=== PATIENT | female | born 1995 | race Caucasian/White ===

== ENCOUNTER 2016-11-18 17:01 | Emergency (ER) | payer OTHER ==
[2016-11-18 18:36] LABS: Hematocrit 38 % (35-47); Hemoglobin 12.7 g/dl (12.0-16.0); Mean Corpuscular HGB Conc 33 g/dl (31-36); Mean Corpuscular Hemoglobin 29 pg (27-31); Mean Corpuscular Volume 87 fL (80-97); Mean Platelet Volume 9 um3 (7.4-10.4); Red Cell Distribution Width 13 % (10.5-15); White Blood Count 10.5 10^3/ul (3.5-10.8)
--- NOTE | 2016-11-18 18:39 | ED ---
Syncope/Near Syncope - HPI Summary HPI Summary: Patient was walking down stairs at school when she began to feel like she was going to pass out, and then she did. The episode was witnessed by her co- workers. She fell forward, landing on her right side hip and then shoulder. Her head did not land hard against any surface. She came too and "feels completely normal now". She had a similar episode years ago when she had a cold and was coughing a lot. [place], and had to spend three days in airports trying to get back. She feels like she has been eating and drinking well. She has not been ill. She denies CP, SOB, fevers, HOPKINS, neck pain, abdominal or back pain. She is not sexually active and her period has been regular. - History Of Current Complaint Chief Complaint: EDSyncope Time Seen by Provider: 11/18/16 17:42 Hx Obtained From: Patient Onset/Duration: Gradual Onset Timing: Minutes Context: Witnessed Activity At Onset: Other - walking down stairs Associated Head Trauma: No Aggravating Factor(s): Nothing Alleviating Factor(s): Spontaneous Resolution Associated Signs And Symptoms: Negative - Risk Factors Cardiac Risk Factors: Negative Dysrhythmia Risk Factors: Negative Risk Factor(s): Negative - Allergies/Home Medications Allergies/Adverse Reactions: Allergies Allergy/AdvReac Type Severity Reaction Status Date / Time No Known Allergies Allergy Verified 11/18/16 17:59 PMH/Surg Hx/FS Hx/Imm Hx Previously Healthy: Yes Infectious Disease History: No Infectious Disease History: Denies: Traveled Outside the [place] in Last 30 Days - Family History Known Family History: Positive: None - Social History Occupation: Student Lives: Alone Alcohol Use: None Substance Use Type: Reports: None Smoking Status (MU): Never Smoked Tobacco Review of Systems Negative: Fever, Chills Negative: Photophobia, Blurred Vision Negative: Sore Throat Negative: Chest Pain Negative: Shortness Of Breath Negative: Abdominal Pain Positive: no symptoms reported Negative: Myalgia Negative: Headache, Weakness, Paresthesia, Numbness All Other Systems Reviewed And Are Negative: Yes Physical Exam Triage Information Reviewed: Yes Vital Signs On Initial Exam: Initial Vitals Temp Pulse Resp BP Pulse Ox 98.2 F 78 14 120/64 98 11/18/16 17:34 11/18/16 17:34 11/18/16 17:34 11/18/16 17:34 11/18/16 17:34 Vital Signs Reviewed: Yes Appearance: Positive: Well-Appearing, No Pain Distress, Well-Nourished Skin: Positive: Warm, Skin Color Reflects Adequate Perfusion, Dry, Soft Head/Face: Positive: Normal Head/Face Inspection Eyes: Positive: EOMI, JUAN, Conjunctiva Clear ENT: Positive: Hearing grossly normal, Pharynx normal, TMs normal Neck: Positive: Supple, Nontender, No Lymphadenopathy Respiratory/Lung Sounds: Positive: Clear to Auscultation, Breath Sounds Present Cardiovascular: Positive: RRR Abdomen Description: Positive: Nontender, Soft. Negative: CVA Tenderness (R), CVA Tenderness (L), Distended, Guarding Bowel Sounds: Positive: Present Musculoskeletal: Positive: Strength/ROM Intact. Negative: Edema Left, Edema Right Neurological: Positive: Sensory/Motor Intact, Alert, Oriented to Person Place, Time, CN Intact II-III, NV Bundle Intact Distally, Normal Gait Psychiatric: Positive: Affect/Mood Appropriate AVPU Assessment: Alert - [place] Coma Scale Coma Scale Total: 15 Diagnostics - Vital Signs Vital Signs Temp Pulse Resp BP Pulse Ox 11/18/16 17:34 98.2 F 78 14 120/64 98 - Laboratory Lab Statement: Any lab studies that have been ordered have been reviewed, and results considered in the medical decision making process. - EKG No standard instances Cardiac Rate: NL EKG Rhythm: Sinus Rhythm ST Segment: Normal Ectopy: None Course/Dx - Diagnoses Differential Diagnosis/HQI/PQRI: Positive: Cerebral Vascular Accident, Dysrhythmia, Hyperventilation, Hypoglycemia, Metabolic Reaction, Seizure, Transient Ischemic Attack, Vasovagal Episode Provider Diagnoses: Syncope Discharge - Discharge Plan Condition: Stable Disposition: HOME Patient Education Materials: Syncope (ED) Referrals: [facility] RADHA Vargas [Medical Doctor] - Additional Instructions: Please follow-up with your primary care provider if symptoms persist or are recurrent. Return to the emergency department if symptoms worsen.
[2016-11-18 18:53] LABS: Albumin 4.4 g/dL (3.2-5.2); Calcium 9.2 mg/dL (8.6-10.3); Globulin 3.1 g/dL (2-4); Magnesium 2.1 mg/dL (1.9-2.7); Potassium 3.7 mmol/L (3.5-5.0); Total Bilirubin 0.5 mg/dL (0.2-1.0); Total Protein 7.5 g/dL (6.4-8.9)
[2016-11-18 19:02] LABS: TSH (Thyroid Stimulating Horm) 0.84 mcIU/mL (0.34-5.60)
[2016-11-18 19:43] VITALS: BP 101/71
== END 2016-11-18 19:42 | disposition home or self-care (01) ==
LOC: ED 17:01
DX: R55 Syncope and collapse (principal)
CPT/HCPCS: 36415; 80053; 83605; 83735; 84443; 84484; 85025; 93005; 99282

== ENCOUNTER 2016-12-02 18:20 | Emergency (ER) | payer OTHER ==
[2016-12-02] MEDS ORDERED: NS 0.9% 1000 ML* 1,000 ML IV ONE (19:26)
[2016-12-02 20:19] LABS: Urine Bilirubin Negative (Negative); Urine Glucose Negative (Negative); Urine Nitrite Negative (Negative)
[2016-12-02 20:37] VITALS: BP 125/78
[2016-12-02 20:49] LABS: Benzodiazepine Urine Screen None Detected (None Detect)
--- NOTE | 2016-12-18 20:47 | ED ---
Katya Balderas Matthew, scribed for Clemente Cruz MD on 12/02/16 at 1929 . Syncope/Near Syncope - HPI Summary HPI Summary: A 20 y/o female presents to the ED after syncopating at 18:00. The patient was standing, waiting for a picture, when she felt nauseated and syncopated. Earlier in the day, she was feeling general weak. She also states that she felt dehydrated prior to the episode. Two weeks ago, the patient syncopated and presented to [facility]. At that time, she didn't feel nauseated before the episode. She stated all the labs and imaging returned normal at that time. A few years ago, she syncopated 2-3 times when she would over exert herself and was prescribed prednisone and an inhaler, which improved her symptoms. Currently, the patient is feeling "much much better". - History Of Current Complaint Chief Complaint: EDSyncope Time Seen by Provider: 12/02/16 19:16 Hx Obtained From: Patient Onset/Duration: Sudden Onset, Resolved Context: Witnessed, Loss Of Consciousness Activity At Onset: At Rest Associated Head Trauma: No Aggravating Factor(s): Nothing Alleviating Factor(s): Spontaneous Resolution Associated Signs And Symptoms: Weakness - general, Other - Nausea - Allergies/Home Medications Allergies/Adverse Reactions: Allergies Allergy/AdvReac Type Severity Reaction Status Date / Time No Known Allergies Allergy Verified 11/18/16 17:59 PMH/Surg Hx/FS Hx/Imm Hx Endocrine/Hematology History: Denies: Hx Diabetes Respiratory History: Reports: Hx Asthma Infectious Disease History: No Infectious Disease History: Denies: Traveled Outside the [place] in Last 30 Days - Family History Known Family History: Positive: Diabetes - Social History Alcohol Use: None Substance Use Type: Reports: None Smoking Status (MU): Never Smoked Tobacco Review of Systems Constitutional: Negative Eyes: Negative ENT: Negative Cardiovascular: Negative Respiratory: Negative Positive: Nausea Genitourinary: Negative Musculoskeletal: Negative Skin: Negative Positive: Weakness - general , Syncope Psychological: Normal All Other Systems Reviewed And Are Negative: Yes Physical Exam Triage Information Reviewed: Yes Vital Signs On Initial Exam: Initial Vitals Temp Pulse Resp BP Pulse Ox 98.9 F 73 20 138/81 100 12/02/16 18:39 12/02/16 18:39 12/02/16 18:39 12/02/16 18:39 12/02/16 18:39 Vital Signs Reviewed: Yes Appearance: Positive: Well-Appearing, No Pain Distress Skin: Positive: Warm Head/Face: Positive: Normal Head/Face Inspection Eyes: Positive: JUAN ENT: Positive: Hearing grossly normal Neck: Positive: Supple Respiratory/Lung Sounds: Positive: Breath Sounds Present Cardiovascular: Positive: Normal, RRR Abdomen Description: Positive: Nontender, Soft Bowel Sounds: Positive: Present Musculoskeletal: Positive: Strength/ROM Intact Neurological: Positive: Sensory/Motor Intact, Alert, Oriented to Person Place, Time, Normal Gait Psychiatric: Positive: Affect/Mood Appropriate - [place] Coma Scale Coma Scale Total: 15 Diagnostics - Vital Signs Vital Signs Temp Pulse Resp BP Pulse Ox 12/02/16 19:00 89 145/81 100 12/02/16 18:45 84 100 12/02/16 18:43 64 138/81 12/02/16 18:39 98.9 F 73 20 138/81 100 - Laboratory Lab Results: Lab Results 12/02/16 12/02/16 Range/Units 18:40 18:40 Urine Color Straw Urine Appearance Clear Urine pH 6.0 (5-9) Ur Specific [place] 1.006 L (1.010-1.030) Urine Protein Negative (Negative) Urine Ketones Negative (Negative) Urine Blood Negative (Negative) Urine Nitrate Negative (Negative) Urine Bilirubin Negative (Negative) Urine Urobilinogen Negative (Negative) Ur Leukocyte Esterase Negative (Negative) Urine Glucose Negative (Negative) Urine Opiates Screen None detected (None Detect) Ur Barbiturates Screen None detected (None Detect) Ur Phencyclidine Scrn None detected (None Detect) Ur Amphetamines Screen None detected (None Detect) U Benzodiazepines Scrn None detected (None Detect) Urine Cocaine Screen None detected (None Detect) U Cannabinoids Screen None detected (None Detect) Lab Statement: Any lab studies that have been ordered have been reviewed, and results considered in the medical decision making process. - EKG 18:40 Cardiac Rate: NL - 73 bpm EKG Rhythm: Sinus Rhythm EKG Interpretation: NO STEMI Course/Dx Assessment/Plan: A 20 y/o female presents to the ED after syncopating at 18:00. The patient was standing, waiting for a picture, when she felt nauseated and syncopated. Earlier in the day, she was feeling general weak. She also states that she felt dehydrated prior to the episode. Two weeks ago, the patient syncopated and presented to [facility]. She stated all the labs and imaging returned normal at that time. Labs were reviewed. EKG showed NSR. The patient did well in the ED and will be discharged home with follow-up at [facility]. - Diagnoses Provider Diagnoses: Syncope Discharge - Discharge Plan Condition: Stable Disposition: HOME Patient Education Materials: Syncope (ED) Referrals: [facility] [Outside] Additional Instructions: Please follow-up with [facility] in 2 days. The documentation as recorded by the Katya fry Matthew accurately reflects the service I personally performed and the decisions made by me, Clemente Cruz MD.
== END 2016-12-02 20:46 | disposition home or self-care (01) ==
LOC: ED 18:20
DX: R55 Syncope and collapse (principal)
CPT/HCPCS: 36415; 80307; 81003; 93005; 99282

== ENCOUNTER → 2019-03-10 | Emergency (ER) | payer OTHER ==
--- NOTE | 2019-03-10 15:07 | ED ---
Syncope/Near Syncope - HPI Summary HPI Summary: The pt is a 23 yr old female presenting to [facility] c/o syncope beginning 2 hours [employer]. She was in her house following her dog when suddenly she felt weak, grabbed onto a nearby pillar, and then passed out. Her roommate the found her lying on the ground and states that the pt was on floor and was twitching, convulsing, and actively seizing for 30 seconds. After the episode her roommate states that she was quivering for about 30 minutes. The pt has fainted in the past and this is her 4th episode of syncope. She mentions that she felt fatigue throughout the day and notes a bruise on her left eyebrow. She denies any current dizziness, weakness, or lightheadedness, as well as urinary incontinence and head injury associated with event. The pt also has a Hx of asthma but no hx of seizures. She also notes that she has felt faint with blacking out symptoms during exercise at times within the last few weeks. - History Of Current Complaint Chief Complaint: EDSyncope Time Seen by Provider: 03/10/19 14:55 Hx Obtained From: Patient, Family/Whizzer Hand - Roomate/friend Onset/Duration: Sudden Onset Timing: Intermittent Episode Lasting - 20-30 minutes Context: Unwitnessed, Loss Of Consciousness Activity At Onset: Other - Walking in kitchen Associated Head Trauma: No Aggravating Factor(s): Exertion - feels faint like "blacking out" when exercising Alleviating Factor(s): Nothing Associated Signs And Symptoms: Seizure - per friend, Weakness, Other - positive - fatigue, ecchymosis to left eyebrow; negative - head injury, urinary incontinence - Allergies/Home Medications Allergies/Adverse Reactions: Allergies Allergy/AdvReac Type Severity Reaction Status Date / Time No Known Allergies Allergy Verified 03/10/19 13:33 Home Medications: Home Medications medroxyPROGESTERone ACETATE* [DEPO-Provera*] 150 mg IM ONCE 03/10/19 [History Confirmed 03/10/19] PMH/Surg Hx/FS Hx/Imm Hx Endocrine/Hematology History: Denies: Hx Diabetes Respiratory History: Reports: Hx Asthma Sensory History: Denies: Hx Legally Blind, Hx Deafness Opthamlomology History: Denies: Hx Legally Blind EENT History: Denies: Hx Deafness - Surgical History Surgical History: None Surgery Procedure, Year, and Place: none Infectious Disease History: No Infectious Disease History: Denies: Traveled Outside the [place] in Last 30 Days - Family History Known Family History: Positive: Diabetes - Social History Alcohol Use: None Hx Substance Use: No Substance Use Type: Reports: None Hx Tobacco Use: No Smoking Status (MU): Never Smoked Tobacco Review of Systems Positive: Fatigue Negative: incontinence Positive: Bruising - to left eyebrow Neurological: Other - Negative - head injury Positive: Weakness - generalized, Syncope - with extremity convulsions All Other Systems Reviewed And Are Negative: Yes Physical Exam - Summary Physical Exam Summary: Appearance: Well-appearing, Well-nourished, lying in bed comfortably Skin: Warm, dry, no obvious rash Eyes: sclera anicteric, no conjunctival pallor ENT: mucous membranes moist, pharynx appears normal Neck: Supple, nontender Respiratory: Clear to auscultation, no signs of respiratory distress Cardiovascular: Normal S1, S2. No murmurs. Normal distal pulses in tibial and radial bilaterally. Abdomen: Soft, nontender, normal active bowel sounds present Musculoskeletal: Normal, Strength/ROM Intact, Motor function in all 4 extremities is normal and symmetric. There is no rigidity or tremor noted. Neurological: A&Ox3, awake and alert, mentation is normal, speech is fluent and appropriate, Level of consciousness nml. The patient is alert and oriented. Cranial nerves are grossly intact. Gaze is conjugate and without nystagmus. Peripheral vision is intact to confrontation. There are no gross sensory abnormalities to light touch. There is no truncal or fine motor ataxia. Gait is normal. Psychiatric: affect is normal, does not appear anxious or depressed Triage Information Reviewed: Yes Vital Signs On Initial Exam: Initial Vitals Temp Pulse Resp BP Pulse Ox 99.8 F 72 14 140/98 99 03/10/19 13:29 03/10/19 13:29 03/10/19 13:29 03/10/19 13:29 03/10/19 13:29 Vital Signs Reviewed: Yes Diagnostics - Vital Signs Vital Signs Temp Pulse Resp BP Pulse Ox 03/10/19 13:29 99.8 F 72 14 140/98 99 - Laboratory Lab Statement: Any lab studies that have been ordered have been reviewed, and results considered in the medical decision making process. - EKG 1454 Cardiac Rate: NL - 77 bpm EKG Rhythm: Sinus Rhythm Summary of EKG Findings: NSR at 77 BPM, P waves, QRS complex, and T waves are within normal limits, T waves and intervals are normal, no ischemic changes. This is a normal EKG. Re-Evaluation - Re-Evaluation First Eval Re-Evaluation Time: 15:25 Comment: We discussed results and discharge home. Course/Dx Course Of Treatment: The pt is a 23 yr old female presenting [place] [facility] c/o syncope beginning 2 hours [employer]. She was in her house following her dog when suddenly she felt weak, grabbed onto a nearby pillar, and then passed out. Her roommate the found her lying on the ground and states that the pt was on floor and was twitching, convulsing, and actively seizing for 30 seconds. After the episode her roommate states that she was quivering for about 30 minutes. The pt has fainted in the past and this is her 4th episode of syncope. She mentions that she felt fatigue throughout the day and notes a bruise on her left eyebrow. She denies any current dizziness, weakness, or lightheadedness, as well as urinary incontinence and head injury associated with event. The pt also has a Hx of asthma but no hx of seizures. She also notes that she has felt faint with blacking out symptoms during exercise at times within the last few weeks. The physical exam is unremarkable. An EKG reveals NSR at 77 BPM, P waves, QRS complex, and T waves are within normal limits, T waves and intervals are normal, no ischemic changes. This is a normal EKG. I spoke with the patient 's father concerning results and low suspicion for cardiac or neurological severity. The pt was diagnosed with convulsive syncope, discharged home, and instructed to follow up with PCP within 3 days. The pt is stable and agreeable with this plan. - Diagnoses Provider Diagnoses: Syncope, convulsive Discharge - Sign-Out/Discharge Documenting (check all that apply): Patient Departure - discharge Patient Received Moderate/Deep Sedation with Procedure: No - Discharge Plan Condition: Good Disposition: HOME Patient Education Materials: Syncope (ED) Referrals: [facility] [Outside] - 3 Days Additional Instructions: If your exercise intolerance persists or worsens I would recommend consulting a bell attendant in [place], and in the interim avoid very high intensity workouts - Billing Disposition and Condition Condition: GOOD Disposition: Home - Attestation Statements Document Initiated by Tutu: Yes Documenting Scribe: Farooq Arrieta Provider For Whom Tutu is Documenting (Include Credential): Cory Steel MD Scribe Attestation: IFarooq, scribed for Cory Steel MD on 03/12/19 at 0522. Scribe Documentation Reviewed: Yes Provider Attestation: The documentation as recorded by the Farooq fry accurately reflects the service I personally performed and the decisions made by me, Cory Steel MD Status of Scribe Document: Viewed
[2019-03-10 15:49] VITALS: BP 148/104
== END | disposition home or self-care (01) ==
LOC: ED 13:21
DX: R55 Syncope and collapse (principal); R56.9 Unspecified convulsions
CPT/HCPCS: 93005; 99282